=== PATIENT | female | born 1960 | race Caucasian/White ===

== ENCOUNTER 2018-06-14 18:15 | Emergency (ER) | payer OTHER, SELFPAY ==
[2018-06-14 18:19] VITALS: BMI 20.8
--- NOTE | 2018-06-14 19:47 | ED PDOC ---
Arrival/HPI <Darian Abarca - Last Filed: 06/14/18 21:15> - General Historian: Patient - History of Present Illness Narrative History of Present Illness (Text): 06/14/18 19:44 57-year-old female with past medical history of diabetes who reports 2 days of fever with body aches, nausea, fatigue, cough. Patient states that she saw her PMD 3 days ago on Friday and was diagnosed with a UTI and was prescribed Cipro 250 mg bid 7 days. Patient reports taking Robitussin and ibuprofen at 4 PM prior to arrival. Otherwise: (-) headache, (-) sore throat, (+) URI symptoms, (- ) SOB, (-) chest pain, (-) N/V/D, (-) abdominal pain, (-) flank pain, (-) urinary symptoms, (-) recent travel, (-) sick contacts. PMD Dg <Lamar Bruce PA-C - Last Filed: 06/14/18 21:35> - General Chief Complaint: Fever Time Seen by Provider: 06/14/18 19:19 Past Medical History - Infectious Disease Hx of Infectious Diseases: None - Tetanus Immunization Tetanus Immunization: Unknown - Reproductive Menopause: Yes - Endocrine/Metabolic Hx Diabetes Mellitus Type 2: Yes - Psychiatric Hx Psychophysiologic Disorder: No Hx Depression: No Hx Emotional Abuse: No Hx Physical Abuse: No Hx Substance Use: No - Surgical History Hx Section: Yes (x2) - Anesthesia Hx Anesthesia: Yes Hx Anesthesia Reactions: No Hx Malignant Hyperthermia: No - Suicidal Assessment Feels Threatened In Home Enviroment: No <Lamar Bruce PA-C - Last Filed: 06/14/18 21:35> Family/Social History Family/Social History: No Known Family HX Smoking Status: Never Smoked Hx Alcohol Use: No Hx Substance Use: No Hx Substance Use Treatment: No <Lamar Bruce PA-C - Last Filed: 06/14/18 21:35> Allergies/Home Meds <Darian Abarca - Last Filed: 06/14/18 21:15> <Lamar Bruce PA-C - Last Filed: 06/14/18 21:35> Allergies/Adverse Reactions: Allergies Penicillins Allergy (Verified 06/14/18 19:24) ANAPHYLAXIS Home Medications: Home Meds Medication Instructions Recorded Confirmed Metformin Hydrochloride [Metformin] 500 mg PO BID 05/08/13 04/02/15 Multivitamin [Multi Vitamins] 1 tab PO DAILY 05/08/13 04/02/15 Review of Systems - Review of Systems Constitutional: Fatigue, Fevers Eyes: absent: Vision Changes, Photophobia, Eye Pain ENT: Rhinorrhea, Sinus Congestion. absent: Sore Throat Cardiovascular: absent: Chest Pain, Palpitations, Edema Gastrointestinal: absent: Abdominal Pain, Diarrhea, Nausea, Vomiting Genitourinary Female: absent: Dysuria, Hematuria Musculoskeletal: Arthralgias, Myalgias. absent: Back Pain, Neck Pain Skin: absent: Rash, Pruritis, Skin Lesions Neurological: absent: Headache, Dizziness <Lamar Bruce PA-C - Last Filed: 06/14/18 21:35> Physical Exam Vital Signs Temp Pulse Resp BP Pulse Ox 06/14/18 20:30 88 16 107/57 L 99 06/14/18 19:56 97.7 F 06/14/18 18:15 97.7 F 94 H 20 96/64 L 94 L <Darian Abarca - Last Filed: 06/14/18 21:15> - Physical Exam Narrative Physical Exam (Text): 06/14/18 19:47 GENERAL APPEARANCE: Patient is awake, alert, oriented x 3, mild distress. SKIN: Warm, dry; (-) cyanosis, (-) rash. (-) Decubitus Ulcer EYES: (-) conjunctival pallor, (-) scleral icterus, (-) conjunctival hemorrhage. ENMT: Mucous membranes moist. TMs: (-) erythema. Airway patent: (-) stridor. Pharynx: (-) erythema, (-) exudate. NECK: (-) tenderness, (-) stiffness, (-) meningismus, (-) lymphadenopathy. CHEST AND RESPIRATORY: (-) accessory muscle use. Lungs: (-) rales, (-) rhonchi, (-) wheezes, (-) rub; breath sounds equal bilaterally. HEART AND CARDIOVASCULAR: (-) irregularity; (-) murmur, (-) gallop, (-) rub. ABDOMEN AND GI: Soft; (-) tenderness, (-) guarding; (-) organomegaly; (-) mass; (-) CVA tenderness. EXTREMITIES: (-) deformity; (-) cellulitis, (-) lymphangitis; (-) subungual hemorrhage; (-) edema. NEURO AND PSYCH: Mental status as above; (-) focal findings. Vital Signs Temp Pulse Resp BP Pulse Ox 06/14/18 18:15 97.7 F 94 H 20 96/64 L 94 L Temperature: Afebrile Blood Pressure: Normal Pulse: Regular Respiratory Rate: Normal Appearance: Positive for: Well-Appearing, Non-Toxic, Comfortable Pain Distress: None Mental Status: Positive for: Alert and Oriented X 3 <Lamar Bruce PA-C - Last Filed: 06/14/18 21:35> Medical Decision Making - Lab Interpretations Lab Results: Lab Results 06/14/18 19:57: Influenza Typ A,B (EIA) Negative for flu a/b - RAD Interpretation Radiology Orders: 06/14/18 19:38 CHEST TWO VIEWS (PA/LAT) [RAD] Stat - Medication Orders Current Medication Orders: Discontinued Medications Acetaminophen (Tylenol 325mg Tab) 975 mg PO STAT STA Stop: 06/14/18 19:43 Last Admin: 06/14/18 19:56 Dose: 975 mg MAR Pain/Vitals Document 06/14/18 19:56 KV (Rec: 06/14/18 19:57 K[place] [id number] Pain Reassessment Is This A Pain ReAssessment? No Sleep Is patient sleeping during reassessment? No Presence of Pain Presence of Pain Yes Pain Scale Used Protocol: PSCALES Pain Scale Used Numeric Location Pain Location Body Site Throat Description Constant Intensity 5 Scale Used Numeric Vitals Temperature (97.6 F-99.6 F) 97.7 F Temperature Source Oral Ondansetron HCl (Zofran Odt) 4 mg PO STAT STA Stop: 06/14/18 19:43 Last Admin: 06/14/18 19:57 Dose: 4 mg <Darian Abarca - Last Filed: 06/14/18 21:15> ED Course and Treatment: 06/14/18 19:47 Plan : - CXR - Flu - zofran PO - tylenol PO - FS FS 113 Flu (-) CXR : ? RLL infiltrate, as read by PA. Solorzano 97.7 P 88 BP 107/57 R 16 O2sat 99%RA On reevaluation, patient reports improvement of symptoms, denies any CP or SOB. Diagnostic results d/w the patient, diagnosis of likely viral illness with possible early pneumonia d/w the patient. On exam, patient remains awake alert and oriented 3 in no acute distress. She is happy and smiling, in good spirits. Given zithromax 500 mg PO here. Advised to follow up with primary care physician in 1-2 days without fail. Advised to take medication as prescribed, bedrest, drink plenty of fluids. Return to the emergency room at any time for any new or worsening symptoms. Patient states she fully agrees with and understands discharge instructions. States that she agrees with the plan and disposition. Verbalized and repeated discharge instructions and plan. I have given the patient opportunity to ask any additional questions. - RAD Interpretation Radiology Orders: 06/14/18 19:38 CHEST TWO VIEWS (PA/LAT) [RAD] Stat - Medication Orders Current Medication Orders: Acetaminophen (Tylenol 325mg Tab) 975 mg PO STAT STA Stop: 06/14/18 19:43 Ondansetron HCl (Zofran Odt) 4 mg PO STAT STA Stop: 06/14/18 19:43 <Lamar Bruce PA-C - Last Filed: 06/14/18 21:35> - PA / GEOGRAPHY DEPARTMENT CHAIR / Resident Statement PIERRE has reviewed & agrees with the documentation as recorded. <Darian Abarca - Last Filed: 06/14/18 21:15> - PA / GEOGRAPHY DEPARTMENT CHAIR / Resident Statement PIERRE has reviewed & agrees with the documentation as recorded. <Lamar Bruce PA-C - Last Filed: 06/14/18 21:35> Disposition/Present on Arrival <Darian Abarca - Last Filed: 06/14/18 21:15> - Present on Arrival Any Indicators Present on Arrival: Yes History of DVT/PE: No History of Uncontrolled Diabetes: Yes Urinary Catheter: No History of Decub. Ulcer: No History Surgical Site Infection Following: None - Disposition Have Diagnosis and Disposition been Completed?: Yes Disposition Time: 21:15 Patient Plan: Discharge <Lamar Bruce PA-C - Last Filed: 06/14/18 21:35> - Disposition Diagnosis: Pneumonia, Viral upper respiratory illness Disposition: HOME/ ROUTINE Condition: STABLE Discharge Instructions (ExitCare): Community-Acquired Pneumonia in Adults, Viral Upper Respiratory Infection, Adult (DC) Additional Instructions: Thank you for letting us take care of you today. You were treated for viral URI, possible early pneumonia. The emergency medical care you received today was directed at your acute symptoms. If you were prescribed any medication, please fill it and take as directed. It may take several days for your symptoms to resolve. Return to the Emergency Department if your symptoms worsen, do not improve, or if you have any other problems. Please contact your doctor in 2 days for re-evaluation and follow up. Bring any paperwork you were given at discharge with you along with any medications you are taking to your follow up visit. Our treatment cannot replace ongoing medical care by a primary care provider (PCP) outside of the emergency department. Thank you for allowing the [facility] team to be part of your care today. If you had an X-Ray : A Radiologist will review the ED reading if any change in treatment is needed we will contact you. Prescriptions: Acetaminophen [Pain Relief] 1,000 mg PO TID PRN #30 tablet PRN Reason: Pain, Moderate (4-7) Azithromycin [Zithromax] 250 mg PO DAILY #4 tab Guaifenesin 400 mg PO QID #20 tablet Ondansetron ODT [Zofran ODT] 4 mg PO DAILY PRN #20 odt PRN Reason: Nausea/Vomiting Referrals: Deja Conte MD [Primary Care Provider] - Follow up with primary Forms: mPortal (Tristanian), WORK NOTE
[2018-06-14 22:10] VITALS: BP 104/63; PULSE 77; RESP 17; TEMP 98.3; O2SAT 97
--- NOTE | 2018-06-15 09:19 | RAD ---
Date of service: 06/14/2018 HISTORY: cough COMPARISON: No prior. TECHNIQUE: Chest PA and lateral FINDINGS: LUNGS: No active pulmonary disease. PLEURA: No significant pleural effusion identified. No pneumothorax apparent. CARDIOVASCULAR: No aortic atherosclerotic calcification present. Normal cardiac size. No pulmonary vascular congestion. OSSEOUS STRUCTURES: No significant abnormalities. VISUALIZED UPPER ABDOMEN: Normal. OTHER FINDINGS: None. IMPRESSION: No acute cardiopulmonary disease appreciated.
== END 2018-06-14 22:12 | disposition home or self-care (01) ==
LOC: ED 18:15
DX: J18.9 Pneumonia, unspecified organism (principal); J06.9 Acute upper respiratory infection, unspecified; E11.9 Type 2 diabetes mellitus without complications